=== PATIENT | male | born 1960 ===

== ENCOUNTER 2022-04-14 11:19 | Observation (INO) ==
[2022-04-14 12:19] LABS: Basophils % 0.5 % (0.0-0.8); Eosinophils # 0.1 10*3/uL (0.0-0.87); Eosinophils % 1.3 % (0.00-10.9); Hematocrit 41.7 VOL% (42.0-52.0); Hemoglobin 13.5 GM/DL (14.0-18.0); Immature Granulocytes % 0.4 %; Immature Granulocytes Absolute 0.03 #; Lymphocytes # 2.4 10*3/uL (1.4-4.0); Lymphocytes % 27.9 % (21.2-54.2); Mean Corpuscular HGB Conc 32.4 GM/DL (32-36); Mean Corpuscular Volume 84.9 FL (87-102); Mean Platelet Volume 9.4 FL (9.6-12.0); Monocytes # 0.5 10*3/uL (0.11-0.8); Monocytes % 5.5 % (1.7-12.7); Neutrophils % 64.4 % (38.7-73.9); Platelet Count 178 T/CUMM (130-400); Red Blood Count 4.91 MC/CUMM (3.8-5.5); White Blood Count 8.42 T/CUMM (4-12)
[2022-04-14 13:09] LABS: Alanine Aminotransferase 24 U/L (16-61); Albumin 3.2 G/DL (3.4-5.0); Alkaline Phosphatase 114 U/L (45-117); Aspartate Amino Transferase 17 U/L (0-37); Blood Urea Nitrogen 12 MG/DL (7-18); Calcium 8.2 MG/DL (8.5-10.1); Carbon Dioxide 22 MMOL/L (21-32); Chloride 115 MMOL/L (98-107); Glucose 100 MG/DL (74-106); Osmolality,Calculated 282.1 MOS/KG (273-304); Potassium 4.1 MMOL/L (3.5-5.1); Sodium 142 MMOL/L (136-145); Thyroid Stimulating Hormone < 0.005 uIU/ml (0.358-3.74); Total Protein 6.7 G/DL (6.4-8.2)
[2022-04-14] MEDS ORDERED: hydrALAZINE 20 MG/1 ML VIAL IV PRN (13:25)
[2022-04-14] MEDS ORDERED: ONDANSETRON 4 MG/2 ML VIAL IV PRN (13:25)
[2022-04-14] MEDS ORDERED: FUROSEMIDE 40 MG/4 ML VIAL IV STA (14:11)
[2022-04-14] MEDS ORDERED: NICOTINE 21 MG/24 HR PATCH TRANSDERM PRN (14:40)
[2022-04-14 15:10] LABS: % Iron Saturation 23.3 % (18-50)
[2022-04-14] MEDS: METOPROLOL TARTRATE 25 MG TABLET PO SCH ×2 (16:18→20:20)
[2022-04-14] MEDS: ENOXAPARIN 80 MG/0.8 ML SYRINGE SUBCUT SCH (16:23)
[2022-04-14] MEDS ORDERED: ZALEPLON 5 MG CAPSULE PO PRN (23:22)
[2022-04-15] MEDS: ENOXAPARIN 80 MG/0.8 ML SYRINGE SUBCUT SCH (01:14)
[2022-04-15 04:46] LABS: Basophils # 0.1 10*3/uL (0.0-0.2); Basophils % 0.5 % (0.0-0.8); Basophils % 0.7 % (0.0-0.8); Eosinophils # 0.2 10*3/uL (0.0-0.87); Eosinophils % 3.2 % (0.00-10.9); Hematocrit 44.8 VOL% (42.0-52.0); Hematocrit 44.9 VOL% (42.0-52.0); Hemoglobin 14.2 GM/DL (14.0-18.0); Immature Granulocytes % 0.3 %; Immature Granulocytes % 1.3 %; Immature Granulocytes Absolute 0.02 #; Lymphocytes % 40.5 % (21.2-54.2); Mean Corpuscular HGB Conc 31.6 GM/DL (32-36); Mean Corpuscular HGB Conc 31.7 GM/DL (32-36); Mean Corpuscular Volume 85.2 FL (87-102); Mean Corpuscular Volume 86.2 FL (87-102); Mean Platelet Volume 9.7 FL (9.6-12.0); Monocytes # 0.6 10*3/uL (0.11-0.8); Monocytes % 7.8 % (1.7-12.7); Monocytes % 7.9 % (1.7-12.7); Neutrophils % 46.6 % (38.7-73.9); Neutrophils % 47.5 % (38.7-73.9); Platelet Count 190 T/CUMM (130-400); Platelet Count 191 T/CUMM (130-400); Red Blood Count 5.21 MC/CUMM (3.8-5.5); Red Blood Count 5.26 MC/CUMM (3.8-5.5); Red Cell Distribution Width 13.8 % (9.3-17.3); White Blood Count 7.44 T/CUMM (4-12)
[2022-04-15 04:58] VITALS: BP 119/73
[2022-04-15 05:04] LABS: Calcium 8.2 MG/DL (8.5-10.1); Osmolality,Calculated 277.4 MOS/KG (273-304); Potassium 4.5 MMOL/L (3.5-5.1); Risk Ratio 2.43
[2022-04-15 05:09] LABS: Folate 22.63 NG/ML (5.38-24.0); Vitamin B12 495 PG/ML (211-911)
[2022-04-15 05:13] LABS: Ferritin 107.5 ng/mL (26-388)
[2022-04-15 07:47] LABS: Hemoglobin A1 (Alkaline) 96.8 % (96.5-98.5); Hemoglobin A2 (Alkaline) 3.2 % (1.5-3.5)
[2022-04-15 07:54] LABS: Sedimentation Rate-Westergren 13 MM/HR (0-20)
[2022-04-15] MEDS ORDERED: FUROSEMIDE 40 MG/4 ML VIAL IV SCH (08:00)
[2022-04-15] MEDS ORDERED: PANTOPRAZOLE 40 MG TABLET PO SCH (09:00)
== END 2022-04-15 07:27 | disposition left against medical advice (07) ==
LOC: N.ED 11:19 → N.EDINP 15:26 → INTOOBSV 15:26 → SUATTDRO 15:26 → N.TELES 16:50
PROVIDERS: ADMIT Family Medicine; ATTEND Internal Medicine